=== PATIENT | male | born 1975 | race Two or more races ===

== ENCOUNTER 2016-10-02 23:16 | Emergency (ER) | payer MEDICAID ==
--- NOTE | ~2016-10-02 | EKG ---
PATIENT: NADJA VARGAS UNIT #: [id number] Ventricular Rate: 66 BPM Atrial Rate: 66 BPM P-R Interval: 168 ms QRS Duration: 102 ms Q-T Interval: 408 ms QTC Calculation(Bezet): 427 ms P [place]: 58 degrees Calculated R [place]: 3 degrees Calculated T [place]: 35 degrees Diagnosis Line: Normal sinus rhythm Diagnosis Line: Normal ECG Diagnosis Line: No previous ECGs available Diagnosis Line: Confirmed by DONAVAN MATRINEZ MD ([id number]) on Diagnosis Line: 10/03/2016 9:05:53 AM INTERPRETING MD: JUAN CORDOBA
--- NOTE | ~2016-10-02 | CT71 ---
[facility] A Service of [facility] RADIOLOGY TEXT RESULTS PATIENT: NADJA VARGAS LOCATION: [facility] : [id number] UNIT #: [id number] AGE: [address]: Mert Casillas MD SEX: M ORDER DR: [id number] [place], [place] [address] [id number] MR#: [id number] Acc #: [id number] NAME: NADJA VARGAS : 1975 SEX: M STUDY DATE/TIME: 10/03/2016 0:32 UNIT: [facility] ROOM: STUDY DESCRIPTION: CT Head Wo Contrast Attending Physician: Mert Casillas M.D. Ordering Physician: Mert Casillas M.D. Primary Care Physician: Primary Care Physician No MEDICAL IMAGING REPORT This report is preliminary unless electronic signature is present EXAM CT scan of the head without contrast INDICATION Headaches and confusion for a week. COMPARISON 11/07/2015. FINDINGS Axial noncontrast images were obtained from the skull base to the vertex. This CT examination was performed with one or more of the following radiation dose reduction techniques: automatic exposure control, adjustment of mA and/or kV according to patient size, and iterative reconstruction. Ventricular size and configuration are normal. There is no evidence of acute infarct or hemorrhage. There are no extra-axial fluid collections. No mass lesion or mass effect is seen. There are no skull fractures. IMPRESSION Normal noncontrast head CT. Dictated by... Gallo Hernandez M.D. THIS IS AN ELECTRONICALLY VERIFIED REPORT Gallo Hernandez M.D. at 10/03/2016 1:32 PM NARCISO/shar TD: 10/03/2016 08:29 JOB #: [id number] [facility] A Service of [facility] RADIOLOGY TEXT RESULTS PATIENT: NADJA VARGAS LOCATION: [facility] : [id number] UNIT #: [id number] AGE: [address]: Mert Casillas MD SEX: M ORDER DR: MEDICAL IMAGING REPORT Page 1 of 1 COPY
[~2016-10-02 23:16] MED LIST: BLOOD PRESSURE
[2016-10-03 00:31] LABS: POC - TROPONIN <0.05 ng/mL (<=0.05)
[2016-10-03 00:31] LABS: BASOPHIL# 0.1 X10e3 (0-0.3); BASOPHIL% 0.8 % (0-2.5); EOSINOPHIL# 0.5 X10e3 (0-0.7); EOSINOPHIL% 6.9 % (0.0-7.0); HEMATOCRIT 43.6 % (38.0-50.0); HEMOGLOBIN 14.7 gm/dL (13.0-16.0); LYMPHOCYTE# 2.1 X10e3 (1.0-3.5); LYMPHOCYTE% 30.6 % (17.0-45.0); MEAN CELL VOLUME 84.7 FL (83-96); MEAN CORPUSCULAR HEMOGLOBIN 28.6 PG (28-34); MEAN CORPUSCULAR HGB CONC 33.8 g/dL (30-36); MEAN PLATELET VOLUME 10.6 FL (6.5-11.5); MONOCYTE# 0.5 X10e3 (0-1.0); MONOCYTE% 7.3 % (3.0-12.0); NEUTROPHIL# 3.8 X10e3 (1.5-7.1); NEUTROPHIL% 54.4 % (40-75); PLATELET COUNT 133 X10e3 (140-420); RED BLOOD COUNT 5.14 X10e (3.90-5.60); RED CELL DISTRIBUTION WIDTH 13.7 % (11.0-15.5)
[2016-10-03 00:32] LABS: DIFF IND NO
[2016-10-03 01:53] LABS: BILIRUBIN, DIRECT 0.1 mg/dL (0.0-0.2); BILIRUBIN,INDIRECT 0.4 mg/dL (0.0-0.9); BILIRUBIN,TOTAL 0.5 mg/dL (0.2-2.0); BUN/CREATININE RATIO 16.66; CALCIUM SERUM 8.7 mg/dL (8.4-10.2); CREATININE SERUM 1.2 mg/dL (0.6-1.4); GLOM FILT RATE Estimated 74.2 mL/min (>60); POTASSIUM 3.5 mmol/L (3.5-5.1)
== END 2016-10-03 02:00 | disposition home or self-care (01) ==
LOC: CED 23:16
PROVIDERS: Emergency Medicine
DX: I11.9 Hypertensive heart disease without heart failure (principal); F17.210 Nicotine dependence, cigarettes, uncomplicated; Z88.8 Allergy status to other drugs, medicaments and biological substances
CPT/HCPCS: 36415; 70450; 80048; 80076; 82553; 84484; 85025; 93005; 96374; 99284; J1885